=== PATIENT | male | born 1960 | race Caucasian/White ===

== ENCOUNTER 2017-11-21 17:48 | Emergency (ER) | payer OTHER ==
[~2017-11-21] VITALS: Ht 170.2 cm; Wt 72.4 kg
[~2017-11-21 17:48] MED LIST: BACTRIM,SEPT1 TABLET PO; NAPROXEN500 MG PO; NO HOME MEDS
[2017-11-21 18:48] LABS: HEMOGLOBIN 16.3 G/DL (12.5-16.6); MCH 30.5 PG (29.0-34.0); MCHC 34.7 G/DL (30.0-36.0); PLATELET COUNT 225 K/uL (156-360); RBC DIS.WIDTH-CV 12.9 % (11.8-14.6); RBC DIS.WIDTH-SD 41.2 % (39-53); RED BLOOD COUNT 5.34 M/uL (4.00-5.50)
[2017-11-21 18:59] LABS: ALBUMIN 4.3 g/dL (3.2-4.8)
[2017-11-21 19:00] LABS: CHLORIDE 102 mEq/L (99-109); POTASSIUM 4.7 mEq/L (3.7-5.4); SODIUM 138 mEq/L (136-147)
[2017-11-21 19:02] LABS: GLUCOSE 89 mg/dL (70-99); TOTAL PROTEIN 7.6 g/dL (6.4-8.3)
[2017-11-21 19:04] LABS: TOTAL BILIRUBIN 0.7 mg/dL (0.0-1.0)
[2017-11-21 19:05] LABS: ALKALINE PHOSPHATASE 60 IU/L (3-129)
[2017-11-21 19:06] LABS: CREATININE 0.9 mg/dL (0.6-1.3); GFR ESTIMATE (CALCULATED) > 59 mL/min/ (58.99-99999)
[2017-11-21 19:07] LABS: AST (GOT) 24 IU/L (2-34); UREA NITROGEN (BUN) 14 mg/dL (9-23)
[2017-11-21 19:08] LABS: ALT (GPT) 21 IU/L (3-49)
[2017-11-21 19:09] LABS: LIPASE 32 U/L (1.0-51.0)
[2017-11-21 19:54] LABS: APPEARANCE CLEAR ((CLEAR)); BILIRUBIN NEGATIVE; BLOOD NEGATIVE; COLOR YELLOW ((YELLOW)); GLUCOSE (STRIP) NEGATIVE; KETONES NEGATIVE; LEUKOCYTES NEGATIVE; NITRITE NEGATIVE; PROTEIN (STRIP) NEGATIVE; SPECIFIC GRAVITY 1.021 (1.000-1.030); UCUL ADDED? NO; UROBILINOGEN 0.2 MG/DL (0.2-1.0)
[2017-11-21] MEDS ORDERED: BENTYL10 MG PO (21:37)
[2017-11-21] MEDS ORDERED: ZOFRAN4 MG PO (21:37)
[2017-11-21 21:53] VITALS: BP 139/82
== END 2017-11-21 21:59 | disposition home or self-care (01) ==
LOC: EME 17:48
DX: R10.30 Lower abdominal pain, unspecified (principal); Z86.14 Personal history of Methicillin resistant Staphylococcus aureus infection; Z87.891 Personal history of nicotine dependence; Z88.5 Allergy status to narcotic agent
CPT/HCPCS: 71046; 74176; 80053; 81003; 83690; 85027; 99281; 99283